=== PATIENT | female | born 1970 | race Two or more races ===

== ENCOUNTER → 2016-11-28 | Outpatient (CLI) | payer MEDICAID ==
[~2016-11-28] MED LIST: ALBUTEROL-200 PUFFS/ IH; ASMANEX TW0.22 MG/A1 IH; ASPI-COR81 M1 PO; ASPIR 8181 MG PO; ATORVASTATIN CA20 M1 PO; CARVEDILOL6.25 M1 PO; CEFUROXIME AXE250 M1 PO; CIPRO 500MG TA500 MG PO; CITALOPRAM20 MG PO; DULERA1 AR1 IH; FLEXERIL10 MG PO; FLOMAX 0.4MG C0.4 MG PO; FLOMAX0.4 MG PO; GABAPENTIN100 M1 PO; GABAPENTIN300 MG PO; HYDROCHLOROTHIA25 M1 PO; LORTAB 5/500 501 TAB PO; MECLIZINE25 MG PO; METFORMIN 500M500 MG PO; METFORMIN1000 MG PO; METFORMIN500 MG PO; MOBIC7.5 MG PO; MOTRIN800 MG PO; NAPROSYN 500MG500 MG PO; NAPROXEN SODIU500 MG PO; NORCO 325 MG-51 TAB PO; PERCOCET 5/3251 EACH PO; PHENERGAN 25MG.25 M1 PO; PROTONIX 40MG T40 MG PO; RANITIDINE HCL150 MG OR; ROBITUSSIN120 ML/BOT PO; TRAMADOL50 M1 PO; TYLENOL ES500 M1 PO; ULTRACET 325 MG1 TAB PO; ULTRAM50 MG PO; ZANTAC 300300 M1 PO; ZOFRAN ODT4 MG PO; ZOFRAN ODT8 MG PO
--- NOTE | 2016-11-29 11:27 | RADIOLOGY REPORT PS360 ---
CT ABD PELVIS W/O CONTRAST HISTORY: RT FLANK PAIN, HX NEPHROLITHIASIS, OLIGURIA Patient Age: 46 years: Female Ordering Physician: JOVANA RUIZ TECHNIQUE: Helical CT scanning performed the abdomen and pelvis with no oral or IV contrast utilized. COMPARISON :February 2016 CT abdomen pelvis FINDINGS Lung bases clear. No active disease. 4 mm benign Calcified granuloma at lingula anteriorly. Small nonspecific nearly 5 mm nodule anterior RML axial image of appears fairly stable since 2016. Fairly dense for size most likely a small granuloma. Heart normal size. Abdomen/pelvis.: Lack of oral and IV contrast decreases sensitivity. Liver. Hepatic steatosis with prominent Diffuse fatty changes in liver. No focal lesions. No biliary ductal dilatation. Gallbladder surgically removed. Pancreas unremarkable on this noncontrast study. Spleen unremarkable Left adrenal. 12 mm mm left adrenal nodule is is slightly more evident on axial views been previous CT study from June.q.. However it appears fairly stable on sagittal images. Doubt significance but should be kept in mind Kidneys. No hydronephrosis. No obstruction. Right kidney: 2 Small ~3 mm nonobstructive calculus lower pole right kidney. Right ureter normal caliber. No calculi. Left kidney. No calculi. No obstruction. Left ureter unremarkable. There is a calcified node again seen just lateral to the left ureter at L4/5 level. Stable feature Postsurgical changes anterior abdominal wall anterior mesh graft, for anterior/ventral hernia repair. Only minimal residual postsurgical scarring. . Small 2 cm area focal fat overlying anterior abdominal wall seen just the superior to the umbilicus, possibly residual from repaired umbilical hernia. It appears stable in size but the fat within it is slightly denser than 2016. No significant inflammation. Pelvis. Previous hysterectomy. No adnexal masses. No pelvic or retroperitoneal adenopathy. No significant findings of the GI tract. Only some scattered diverticula at the sigmoid colon noted. No additional findings now for the right-sided pain. Terminal ileum unremarkable. Appendix is not discretely visualized and I see no good evidence of appendicitis. I would note that the cecum is low lying at the right pelvis and appendix likely extends towards the region of the right adnexa. Numerous phleboliths are again seen at the lower pelvic basin. At the right colon there is minor fatty wall thickening right and transverse colon most likely reflecting distribution of adipose with similar appearance previous studies.. Less likely reflects chronic inflammatory changes of bowel which can yield similar appearance IMPRESSION 1. No obstructive uropathy nor acute findings. No hydronephrosis. No ureteral dilatation or calculi. Bladder unremarkable. 2. There are 2 small l Nonobstructive calculi lower pole right kidney, 3 mm size or less.. 3. Stable anterior mesh graft abdominal hernia repair. No significant change here since Feb 2016 4. Small nonspecific 12 mm left adrenal nodule.. Very Slightly more apparent than previous studies on the axial images but yet appears fairly stable on sagittal. Most likely benign and Can be followed. But Suggest follow-up 2 view chest as well . 5. Prominent hepatic steatosis. Cholecystectomy 6.. Regarding right-sided pain: . No acute findings. No appendicitis. Terminal ileum unremarkable. .Incidental note of mild diffuse fatty wall thickening at ascending colon. Nonspecific and may merely reflect fat distribution, but can be seen with chronic inflammatory changes of bowel. .
== END ==
LOC: RAD 10:27
DX: R10.9 Unspecified abdominal pain (principal); R34 Anuria and oliguria; Z87.442 Personal history of urinary calculi

== ENCOUNTER → 2016-12-26 | Outpatient (CLI) | payer MEDICAID ==
[2016-12-26 14:44] LABS: HEMOGLOBIN 15.1 g/dL (12.2-16.2); LYMPH % 42.1 % (10-50.0)
[2016-12-26 15:30] LABS: BUN 13 mg/dL (7-18)
[2016-12-26 15:33] LABS: GFR (ESTIMATED) 89 ML/MIN (59-)
--- NOTE | 2016-12-26 15:38 | RADIOLOGY REPORT PS360 ---
SPINE-THOROCOLUMBAR--2 VIEW CLINICAL INDICATION: ACUTE LBP ORDERING PHYSICIAN: JOVANA RUIZ PATIENT AGE: 46 years COMPARISON: None FINDINGS: No fracture or dislocation. There is normal alignment of the disc spaces are well-preserved. No lytic or blastic change. There is mild facet arthritic change at L5-S1. Multiple tacks are present from prior abdominal wall surgery and there are surgical clips in right upper quadrant. IMPRESSION: 1. No acute finding. 2. Mild facet arthritic changes at L5-S1
--- NOTE | 2016-12-26 15:42 | RADIOLOGY REPORT PS360 ---
PELVIS AP ONLY HISTORY: Left hip pain LT HIP PAIN ORDERING PHYSICIAN: JOVANA RUIZ PATIENT AGE: 46 years COMPARISON: None FINDINGS: No fracture or dislocation is evident. No significant degenerative change. No lytic or blastic change. The SI joints have an unremarkable appearance. Unremarkable soft tissues. There are multiple pelvic and lower abdominal calcifications consistent with phleboliths. IMPRESSION: Negative pelvis
[2016-12-28 10:39] LABS: Creatinine, Urine 114.7 mg/dL (Not Estab.); Microalbumin, Urine 4.4 ug/mL (Not Estab.)
== END ==
LOC: RAD 10:51 → LAB 10:51
PROVIDERS: Physician Assistant
DX: M54.5 Low back pain (principal); M25.552 Pain in left hip; Z23 Encounter for immunization; F32.9 Major depressive disorder, single episode, unspecified; E78.5 Hyperlipidemia, unspecified

== ENCOUNTER → 2017-02-19 | Outpatient (CLI) | payer MEDICAID ==
[2017-02-19 18:55] LABS: HEMOGLOBIN 15.4 g/dL (12.2-16.2); LYMPH % 39.7 % (10-50.0)
[2017-02-19 19:33] LABS: BUN 15 mg/dL (7-18)
[2017-02-19 19:35] LABS: GFR (ESTIMATED) 77 ML/MIN (59-)
== END ==
LOC: LAB 18:42
PROVIDERS: Nurse Practitioner Family
DX: R53.83 Other fatigue (principal); E55.9 Vitamin D deficiency, unspecified